=== PATIENT | female | born 2000 | race Caucasian/White ===

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

== ENCOUNTER 2018-06-22 20:58 | Emergency (ER) | payer OTHER ==
[~2018-06-22] VITALS: Ht 162.6 cm; Wt 63.8 kg
[2018-06-22 21:22] VITALS: BP 127/66
--- NOTE | 2018-06-22 21:22 | NUR ---
FIRST CONTACT WITH PT. PT C/O LEFT KNEE PAIN X 1WEEK. DORSALIS PEDAL PULSE +2 BILATERALLY. NO REDNESS/SWELLING NOTED. PT AOX4. RESPS EVEN AND UNLABORED. NEURO INTACT. PT'S FAMYLY AND FRIEND AT BEDSIDE. EDMD AT BEDSIDE TO EXPLAIN POC AT THIS TIME. BP AND SPO2 MONITOR IN PLACE. CALL LIGHT WITHIN REACH.
== END 2018-06-22 22:42 | disposition home or self-care (01) ==
LOC: ED 22:38
DX: S80.02XA Contusion of left knee, initial encounter (principal); Y04.0XXA Assault by unarmed brawl or fight, initial encounter; Y93.89 Activity, other specified; Y92.89 Other specified places as the place of occurrence of the external cause; Y99.8 Other external cause status
CPT/HCPCS: 99283